=== PATIENT | male | born 1960 | race African-American/Black ===

== ENCOUNTER 2022-06-28 14:41 | Emergency (ER) | payer MEDICAID ==
[~2022-06-28] VITALS: Ht 175.3 cm; Wt 117.9 kg
[2022-06-28 14:45] VITALS: BP_SYST 110
[2022-06-28] MEDS ORDERED: LEVE500T9 PO (15:23)
[2022-06-28] MEDS ORDERED: SENN-22 PO (15:23)
[2022-06-28] MEDS ORDERED: VITD400 PO (15:23)
[2022-06-28] MEDS ORDERED: ALLO100T PO (15:23)
[2022-06-28] MEDS ORDERED: EPOE10002 IJ (15:23)
[2022-06-28] MEDS ORDERED: [UNRECOGNIZED DRUG - CODE] PO (15:23)
[2022-06-28] MEDS ORDERED: FOLI0.8T42 PO (15:23)
[2022-06-28] MEDS ORDERED: CALC0.258 PO (15:23)
[2022-06-28] MEDS ORDERED: COLC0.6T67 PO (15:23)
[2022-06-28] MEDS ORDERED: PRAV10TA PO (15:23)
[2022-06-28] MEDS ORDERED: LACT10PA5 PO (15:23)
[2022-06-28] MEDS ORDERED: LACT1CAP69 PO (15:23)
[2022-06-28 15:29] LABS: BASOPHILS % (AUTO) 0.7 % (0.0-2.0); EOSINOPHILS # (AUTO) 0.3 K/uL (0.0-0.4); HEMATOCRIT 24.6 % (36-54); HEMOGLOBIN 8.1 g/dL (14.0-18.0); LYMPHOCYTES # (AUTO) 0.8 K/uL (1.0-5.5); LYMPHOCYTES % (AUTO) 12.9 % (20.5-51.5); MEAN CORPUSCULAR HEMOGLOBIN 28 pg (27-31); MEAN CORPUSCULAR HGB CONC 33 % (32-36); MEAN CORPUSCULAR VOLUME 86 fL (79.0-98.0); MONOCYTES # (AUTO) 0.6 K/uL (0.0-1.0); MONOCYTES % (AUTO) 9.2 % (1.7-9.3); NEUTROPHILS # (AUTO) 4.6 K/uL (1.8-7.7); NEUTROPHILS % (AUTO) 73.2 % (40.0-70.0); PLATELET COUNT (AUTO) 224 K/uL (130-430); RED BLOOD CELL COUNT(AUTO) 2.87 MIL/uL (4.2-6.2); RED CELL DISTRIBUTION WIDTH 16.2 % (9.0-15.0); WHITE BLOOD COUNT (AUTO) 6.3 K/uL (4.8-10.8)
[2022-06-28 16:02] LABS: PROTHROMBIN TIME 9.9 SECS (9.5-12.5)
[2022-06-28 16:07] LABS: ANION GAP 6 (5-15); CALCIUM 10.1 mg/dL (8.4-11.0); CHLORIDE 100 mmol/L (98-107); CREATININE 5.25 mg/dL (0.55-1.30); GLUCOSE 156 mg/dL (70-99); UREA NITROGEN, BLOOD 44 mg/dL (8-21)
[2022-06-28 16:08] LABS: GFR AFRICAN AMERICAN 14 mL/min (>90)
[2022-06-28 16:11] LABS: ALANINE AMINOTRANSFERASE 17 U/L (12-78); ALBUMIN 3.5 g/dL (3.4-4.8); ASPARTATE AMINOTRANSFERASE 10 U/L (10-37)
[2022-06-28 16:42] LABS: TOTAL BILIRUBIN 0.2 mg/dL (0.0-1.0)
[2022-06-28 18:50] LABS: PHENYTOIN (DILANTIN) < 0.5 ug/mL (10.0-20.0)
[2022-06-28 19:22] VITALS: BP_SYST 131
== END 2022-06-28 19:22 | disposition home or self-care (01) ==
LOC: SED 14:41
DX: R07.9 Chest pain, unspecified (principal); E78.5 Hyperlipidemia, unspecified; Z88.1 Allergy status to other antibiotic agents; Z88.2 Allergy status to sulfonamides; Z88.6 Allergy status to analgesic agent; Z88.5 Allergy status to narcotic agent; Z88.8 Allergy status to other drugs, medicaments and biological substances; Z91.010 Allergy to peanuts; Z79.899 Other long term (current) drug therapy
CPT/HCPCS: 36415; 71045; 80053; 80185; 82550; 84484; 85025; 85610-TC; 85730-TC; 93005; 99285